=== PATIENT | female | born 1995 | race Caucasian/White ===

== ENCOUNTER 2021-05-06 16:30 | Emergency (ER) | payer MEDICARE ==
[2021-05-06 18:19] LABS: #Basophils 0.1 thou/uL (0.0-0.2); #Eosinphils 0.2 thou/uL (0.0-0.7); #Monocytes 0.6 thou/uL (0.11-0.59); #Neutrophils 7.2 thou/uL (1.40-6.50); %Basophils 0.8 % (0.0-1.0); %Eosinophils 1.7 % (0.0-10.0); %Lymphocytes 27.1 % (21.0-51.0); %Monocytes 5.4 % (0.0-10.0); %Neutrophils 64.9 % (42.0-75.0); Hemoglobin 14.1 g/dL (12.0-16.0); Mean Corpuscular HGB CONC 32.8 g/dL (32.0-36.0); Mean Corpuscular Hemoglobin 28.4 pg (27.0-31.0); Mean Corpuscular Volume 86.7 fL (78.0-98.0); Mean Platelet Volume 8.9 fL (7.4-10.4); Platelet Count 368 thou/uL (130-400); RBC Distribution Width 11.6 % (11.5-14.5); Red Blood Cell (RBC) Count 4.97 mill/uL (4.20-5.40); White Blood Cell (WBC) Count 11.1 thou/uL (4.8-10.8)
[2021-05-06 18:34] LABS: ALT (SGPT) 40 U/L (8-55); AST (SGOT) 34 U/L (5-34); Albumin 3.9 g/dL (3.5-5.0); Alkaline Phosphatase 121 U/L (40-110); Anion Gap 14 mmol/L (10-20); BUN (Urea Nitrogen) 7 mg/dL (7.0-18.7); Bilirubin, Total 0.3 mg/dL (0.2-1.2); CK (CPK) 52 U/L (29-168); Calc. Creatinine Clearance 0 mL/min (70-130); Calcium 9.6 mg/dL (7.8-10.44); Carbon Dioxide 24 mmol/L (22-29); Chloride 105 mmol/L (98-107); Glucose 79 mg/dL (70-105); Potassium 4.1 mmol/L (3.5-5.1); Protein, Total 7.9 g/dL (6.0-8.3); Sodium 139 mmol/L (136-145)
[2021-05-06 18:38] LABS: CKMB 0.5 ng/mL (0-6.6)
== END 2021-05-06 19:15 | disposition home or self-care (01) ==
LOC: MADERS 16:30
DX: R07.9 Chest pain, unspecified (principal); Z20.822 Contact with and (suspected) exposure to COVID-19; E03.9 Hypothyroidism, unspecified; K21.9 Gastro-esophageal reflux disease without esophagitis
CPT/HCPCS: 71045; 80053; 82550; 82553; 84484; 85025; 85379; 93005

== ENCOUNTER 2021-12-26 10:30 | Outpatient (CLI) | payer MEDICARE, OTHER | END 2021-12-26 10:31 | disposition home or self-care (01) | LOC: MADLAB 10:30 → MADCT 10:31 | PROVIDERS: ATTEND Physician Assistant | DX: S09.90XA Unspecified injury of head, initial encounter (principal) | CPT/HCPCS: 70450 ==

== ENCOUNTER 2022-01-04 10:52 | Outpatient (CLI) | payer MEDICARE, OTHER | END 2022-01-04 10:53 | disposition home or self-care (01) | LOC: MADLAB 10:52 | PROVIDERS: ATTEND Physician Assistant | DX: R07.89 Other chest pain (principal) ==

== ENCOUNTER 2022-04-08 17:07 | Emergency (ER) | payer MEDICARE, OTHER, SELFPAY ==
[2022-04-08] MEDS ORDERED: Triple Antibiotic Oint 1 GM Packet ONE (17:42)
[2022-04-08] MEDS ORDERED: Ibuprofen 800 MG TAB ONE (17:42)
[2022-04-08] MEDS ORDERED: Acetaminophen 500 MG TAB ONE (17:45)
== END 2022-04-08 17:54 | disposition home or self-care (01) ==
LOC: MADERS 17:07
DX: T21.22XA Burn of second degree of abdominal wall, initial encounter (principal); T31.0 Burns involving less than 10% of body surface; E03.9 Hypothyroidism, unspecified; K21.9 Gastro-esophageal reflux disease without esophagitis; X10.0XXA Contact with hot drinks, initial encounter
CPT/HCPCS: 99283